=== PATIENT | male | born 1970 | race Caucasian/White ===

== ENCOUNTER 2020-11-25 17:52 | Emergency (ER) | payer OTHER ==
[~2020-11-25] VITALS: Ht 172.7 cm; Wt 74.8 kg
[2020-11-25] MEDS ORDERED: LAMISIL AT12 G1 TOP (19:37)
== END 2020-11-25 20:06 | disposition home or self-care (01) ==
LOC: ER 17:52
DX: R07.89 Other chest pain (principal); B35.3 Tinea pedis

== ENCOUNTER 2025-08-25 08:30 | Outpatient (CLI) | payer OTHER ==
[~2025-08-25 08:30] MED LIST: LAMISIL AT12 G1 TOP
== END 2025-08-25 08:39 | disposition home or self-care (01) ==
LOC: RAD 08:30
DX: R05.3 Chronic cough (principal); R07.9 Chest pain, unspecified; Z72.0 Tobacco use; F17.210 Nicotine dependence, cigarettes, uncomplicated